=== PATIENT | male | born 1990 | race Caucasian/White ===

== ENCOUNTER 2018-12-08 14:04 | Emergency (ER) | payer SELFPAY ==
[2018-12-08 14:09] VITALS: BMI 28.3
--- NOTE | 2018-12-08 14:15 | PDOC ---
History of Present Illness - General Chief Complaint: Alcohol intoxication Stated Complaint: VOMITING Time Seen by Provider: 12/08/18 14:14 History Source: Patient (Travel Nurse #[id number]) Exam Limitations: No Limitations - History of Present Illness Initial Comments: 12/08/18 15:26 28M w/ pmh of chronic EtOH usage(12beers/d x 10ys) presenting with complaint of severe nausea and episodes of red and coffee-ground appearing emesis x 4-5 for the past two days. Cannot tolerate PO. Has had a worsened Right-sided temporal OROURKE, worsened to 5/10 severity in the last few days; present since slipping in the shower and striking his head w/o LOC 1mo prior. Also complains of all-over body warmth and perianal itching w/a intermittent bright blood in the toilet water and wiping. Last EtOH drink was ~12:00midnight, the night prior to presentation. Endorses anxiety, sensation of tingling on his head. Denies AH, VH. Has had ~6 past OSH hospital visits for EtOH-related OROURKE and numbness. Had a dark black stool 1 month prior. Lives alone in a rented room. Works 1-2x weekly. Associated Symptoms: reports: nausea/vomiting Past History - Travel Traveled outside of the country in the last 30 days: No Close contact w/someone who was outside of country & ill: No - Past Medical History Allergies/Adverse Reactions: Allergies Allergy/AdvReac Type Severity Reaction Status Date / Time No Known Allergies Allergy Verified 12/08/18 14:09 Home Medications: Ambulatory Orders NK [No Known Home Medication] 12/08/18 Anemia: No Asthma: No Cancer: No COPD: No Diabetes: No GI Disorders: Yes (Gastritis) HTN: Yes - Surgical History Abdominal Surgery: No - Family Disease History Family Disease History: CA: Mother (unspecified Ca) - Immunization History Immunization Up to Date: No - Suicide/Smoking/Psychosocial Hx Smoking Status: Yes Smoking History: Current every day smoker Years of Tobacco Use: 10 Have you smoked in the past 12 months: Yes Number of Cigarettes Smoked Daily: 5 Hx Alcohol Use: Yes Drug/Substance Use Hx: No Substance Use Type: Alcohol, Cocaine (one-time), Marijuana (occasional) Patient Lives Alone: Yes Lives with/in: lives alone Review of Systems - Review of Systems Able to Perform ROS?: Yes Is the patient limited Belarusian proficient: Yes Constitutional: Yes: Chills, Diaphoresis. No: Fever HEENTM: No: Blurred Vision, Double Vision Respiratory: Yes: Shortness of Breath. No: Cough, Wheezing Cardiac (ROS): No: Chest Pain, Palpitations, Syncope ABD/GI: Yes: Other (perianal itching x30d). No: Abdominal Distended, Constipated, Diarrhea, Tarry Stools : No: Burning, Dysuria, Urgency Musculoskeletal: No: Back Pain Integumentary: No: Pruritus, Sweating Neurological: Yes: Headache, Tingling. No: Ataxia Psychiatric: Yes: Anxiety *Physical Exam - Vital Signs Last Vital Signs Temp Pulse Resp BP Pulse Ox 98 F 91 H 18 132/89 97 12/08/18 14:06 12/08/18 14:06 12/08/18 14:06 12/08/18 14:06 12/08/18 14:06 - Physical Exam General Appearance: Yes: Mild Distress (active heaving w/o emesis during interview) HEENT: positive: Normal Voice. negative: Pale Conjunctivae, Scleral Icterus (R) , Scleral Icterus (L) Neck: negative: Tender, Trachea midline Respiratory/Chest: positive: Lungs Clear, Normal Breath Sounds, Respiratory Distress. negative: Chest Tender, Accessory Muscle Use Gastrointestinal/Abdominal: positive: Soft. negative: Tender, Protuberent, Distended, Tenderness Rectal Exam: positive: normal rectal tone, other (no external perianal masses noted. No rectal masses palpated. light brown stool on glove.). negative: hemorrhoids Extremity: negative: Delayed Capillary Refill, Calf Tenderness Integumentary: positive: Normal Color, Dry, Warm Neurologic: positive: Fully Oriented, Alert ED Treatment Course - LABORATORY CBC & Chemistry Diagram: 12/08/18 15:29 12/08/18 15:29 Medical Decision Making - Medical Decision Making 12/08/18 15:55 - CIWA ~7 - fu CBC, CMP, lipase, UA - ordered NS 1L, zofran, famotidine IV - labs reviewed - no major abnormalities - CTH reviewed - no acute changes - nausea resolved after zofran - OROURKE is improved - patient able to tolerate ice water > 4cups - patient stable for discharge *DC/Admit/Observation/Transfer Diagnosis at time of Disposition: Anal fissure Gastritis, alcoholic Qualifiers: Chronicity: chronic Gastritis bleeding: presence of bleeding unspecified Qualified Code(s): K29.20 - Alcoholic gastritis without bleeding Vomiting Qualifiers: Vomiting type: unspecified Vomiting Intractability: non-intractable Nausea presence: with nausea Qualified Code(s): R11.2 - Nausea with vomiting, unspecified Headache Qualifiers: Headache type: unspecified Headache chronicity pattern: acute headache Intractability: not intractable Qualified Code(s): R51 - Headache - Referrals Referrals: [facility] [place] [facility] [place] [Provider Group] Shahab Gallagher DO [Staff Physician] - - Patient Instructions Printed Discharge Instructions: DI for Alcohol Abuse, DI for Headache Additional Instructions: El nmero de telfono del programa de rehabilitacin de alcohol es [phone]. Yenny un seguimiento con whalen mdico de atencin primaria. Si no tiene bakari, hay abkari a continuacin. Regrese si tiene algn sntoma nuevo, que empeora o preocupa, especialmente vmitos, aumento del dolor y fiebre. The phone number for the alcohol rehab program is . Please follow up with your primary care physician. If you do not have one, there is one below. Please return if you have any new, worsening or concerning symptoms, especially vomiting, increasing pain and fever. - Post Discharge Activity
[2018-12-08] MEDS ORDERED: ONDANSETRON 4 MG/2 ML VIAL IVPUSH ONE (15:21)
[2018-12-08] MEDS ORDERED: SODIUM CHLORIDE 0.9% 500 ML INFUS.BAG IV ONE (15:21)
[2018-12-08] MEDS ORDERED: FAMOTIDINE 20 MG/50 ML IVPB 20 MG/50 ML MG IVPB ONE ×2 (15:22→15:26)
[2018-12-08] MEDS ORDERED: ONDANSETRON 4 MG/2 ML VIAL ONE (15:26)
--- NOTE | 2018-12-08 15:40 | PDOC ---
Documentation entered by Simona Valentine SCRIBE, acting as scribe for Georgie Weller MD. Georgie Weller MD: This documentation has been prepared by the Meme mcintyre Sammi, SCRIBE, under my direction and personally reviewed by me in its entirety. I confirm that the documentation accurately reflects all work, treatment, procedures, and medical decision making performed by me. Attending Attestation - Resident Resident Name: Sreekanth Serrano - HPI HPI: 12/08/18 16:08 The patient is a 28 year old male, with a significant PMH of alcohol abuse, who presents to the emergency department for evaluation of a diffuse headache since midnight last night. The patient notes he has had a headache after hitting his head about 1 month ago but has increased in severity last night. The patient states he drank about 6 beers (normally drinks ~12) and stopped due to the headache. He has not taken anything for the pain as he does not like to take medications when drinking. He also reports several episodes of black stool and yellow diarrhea. The patient also notes new onset nausea and vomiting since midnight. Allergies: NKA - Physicial Exam PE: 12/08/18 16:08 CONSTITUTIONAL: Well-appearing; well-nourished; in no apparent distress HEAD: Normocephalic; atraumatic EYES: PERRL; EOM intact ENMT: (+)dry mucous membrane. External appears normal; normal oropharynx NECK: Supple; non-tender; no cervical lymphadenopathy CARD: Normal S1, S2; no murmurs, rubs, or gallops RESP: Normal chest excursion with respiration; breath sounds clear and equal bilaterally; no wheezes, rhonchi, or rales ABD: Soft, non-distended; non-tender; no palpable organomegaly, no palpable hernias EXT: Normal ROM in all four extremities; non-tender to palpation; distal pulses intact SKIN: Warm, dry, no rash NEURO: (+)tremor. No focal neurological deficiencies. - Medical Decision Making 12/08/18 17:38 28 y/o male here in ED due to sudden onset of severe headache around midnight associated with nausea and vomitting. Pt reports a fall one airam ago with a chronoc headache since that fall yhat never went away but suddenly intensified. Pt with h/o arlene abuse normally drinks about 12 beers a night but could only drink 6 last night. Pt did not take any meds for his headache because he does not take meds when he is drinking. DD subdural bleed from bridging veins, alcohol gastritis, pancreatitis,tension headache. Pt also reports black stools today with yellow stools yesterday. Pt is clinically dehydrated Plan: cbc, cmp, lipase, ua, stool for occcult blood, ct of head, iv fluid, tylenol, reglan pepcid and reevaluate 12/08/18 18:31 Pt is feeling better , tolerating fluid, stable for dc home, pt requesting number for alcohol detox on out pt as per resident. 12/08/18 18:32 Pt guiac positive most dsecondary to rectal fissure but will refer to gi as out pt, pt with hgb of 17 in ED.
[2018-12-08 15:53] LABS: BASO % 0.8 % (0-2.0); EOS % 0.2 % (0-4.5); HEMATOCRIT 48.3 % (35.4-49); LYMPH % 30.1 % (8-40); MCH 30.9 pg (25.7-33.7); MCHC 35.1 g/dl (32.0-35.9); MEAN CELL VOLUME 88.1 fl (80-96); MEAN PLT VOLUME 10.1 fl (7.5-11.1); MONO % 5.3 % (3.8-10.2); NEUT % 63.6 % (42.8-82.8); PLATELET COUNT 232 K/MM3 (134-434); RBC 5.49 M/mm3 (4.00-5.60); RDW 12.6 % (11.9-15.9); WHITE BLOOD COUNT 6.8 K/mm3 (4.0-10.0)
[2018-12-08] MEDS ORDERED: ACETAMINOPHEN 1000 MG/100 ML VIAL (NON FORMULARY) IVPB ONE (15:56)
[2018-12-08] MEDS ORDERED: ACETAMINOPHEN INJECTION 100 ML IVPB ONE (15:58)
[2018-12-08 16:21] LABS: ALBUMIN 4.6 g/dl (3.4-5.0); BILIRUBIN,TOTAL 1.1 mg/dL (0.2-1); BLOOD UREA NITROGEN 12.8 mg/dL (7-18); CALCIUM 8.9 mg/dL (8.5-10.1); CREATININE 0.9 mg/dL (0.55-1.3); POTASSIUM 3.9 mmol/L (3.5-5.1); TOT PROT 8.6 g/dl (6.4-8.2)
[2018-12-08 16:47] LABS: PH,URINE 6.5 (5.0-8.0); URINE APPEARANCE CLEAR; URINE BILIRUBIN NEGATIVE (NEGATIVE); URINE COLOR DK YELLOW; URINE GLUCOSE (UA) NEGATIVE (NEGATIVE); URINE KETONE TRACE (NEGATIVE); URINE LEUK ESTERASE NEGATIVE (NEGATIVE); URINE NITRITE NEGATIVE (NEGATIVE); URINE PROTEIN TRACE (NEGATIVE); URINE UROBILINOGEN 0.2 mg/dL (0.2-1.0)
[2018-12-08] MEDS ORDERED: SODIUM CHLORIDE 1,000 ML IV STA (16:55)
--- NOTE | 2018-12-08 18:16 | PDOC ---
*Physical Exam - Vital Signs Last Vital Signs Temp Pulse Resp BP Pulse Ox 98 F 90 18 125/98 95 12/08/18 14:06 12/08/18 15:15 12/08/18 14:06 12/08/18 15:15 12/08/18 15:15 ED Treatment Course - LABORATORY CBC & Chemistry Diagram: 12/08/18 15:29 12/08/18 15:29 - ADDITIONAL ORDERS Additional order review: Laboratory Results 12/08/18 12/08/18 12/08/18 16:14 15:42 15:29 Sodium Potassium Chloride Carbon Dioxide Anion Gap BUN Creatinine Est GFR (CKD-EPI)AfAm Est GFR (CKD-EPI)NonAf Random Glucose Calcium Total Bilirubin AST ALT Alkaline Phosphatase Total Protein Albumin Lipase 80 Urine Color Dk yellow Urine Appearance Clear Urine pH 6.5 Ur Specific Reading 1.026 Urine Protein Trace Urine Glucose (UA) Negative Urine Ketones Trace H Urine Blood Negative Urine Nitrite Negative Urine Bilirubin Negative Urine Urobilinogen 0.2 Ur Leukocyte Esterase Negative Stool Occult Blood Positive 12/08/18 15:29 Sodium 140 Potassium 3.9 Chloride 105 Carbon Dioxide 22 Anion Gap 13 BUN 12.8 Creatinine 0.9 Est GFR (CKD-EPI)AfAm 133.30 Est GFR (CKD-EPI)NonAf 115.01 Random Glucose 126 H Calcium 8.9 Total Bilirubin 1.1 H AST 35 ALT 52 Alkaline Phosphatase 109 Total Protein 8.6 H Albumin 4.6 Lipase Urine Color Urine Appearance Urine pH Ur Specific Reading Urine Protein Urine Glucose (UA) Urine Ketones Urine Blood Urine Nitrite Urine Bilirubin Urine Urobilinogen Ur Leukocyte Esterase Stool Occult Blood 12/08/18 15:29 RBC 5.49 MCV 88.1 MCHC 35.1 RDW 12.6 MPV 10.1 Neutrophils % 63.6 Lymphocytes % 30.1 Monocytes % 5.3 Eosinophils % 0.2 Basophils % 0.8 - RADIOLOGY Radiology Studies Ordered: Category Date Time Status HEAD CT WITHOUT CONTRAST [CT] Stat CT Scan 12/08/18 16:01 Completed - Medications Given in the ED: ED Medications Discontinued Medications Generic Name Dose Route Start Last Admin Trade Name Freq PRN Reason Stop Dose Admin Acetaminophen 1,000 mg 12/08/18 15:56 12/08/18 16:03 Ofirmev Injection - IVPB 12/08/18 15:57 1,000 mg ONCE ONE Administration Famotidine/Sodium Chloride 20 mg in 50 mls @ 100 mls/hr 12/08/18 15:22 15:37 Pepcid 20 Mg Premixed Ivpb - IVPB 12/08/18 15:51 100 mls/hr ONCE ONE Administration Sodium Chloride 1,000 mls @ 1,000 mls/hr 12/08/18 16:55 12/08/18 17:14 Normal Saline - IV 12/08/18 17:54 1,000 mls/hr ASDIR STA Administration Ondansetron HCl 4 mg 12/08/18 15:21 12/08/18 15:37 Zofran Injection IVPUSH 12/08/18 15:22 4 mg ONCE ONE Administration Sodium Chloride 1,000 ml 12/08/18 15:21 12/08/18 15:37 Normal Saline - IV 12/08/18 15:22 1,000 ml ONCE ONE Administration Medical Decision Making - Medical Decision Making 12/08/18 18:09 Reassessed patient. Patient is 28M with history of etoh abuse here today with headache, vomiting, and anal pruritis. CBC shows evidence of dehydration. Given 2L IV. Tolerated 300cc of water by PO. Headache improved. Other labs normal. 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 Will discharge home. *DC/Admit/Observation/Transfer Diagnosis at time of Disposition: Gastritis, alcoholic, Vomiting, Headache, Anal fissure - Discharge Dispostion Disposition: HOME Condition at time of disposition: Good Decision to Admit order: No - Referrals Referrals: [facility] [place] [facility] [place] [Provider Group] Shahab Gallagher DO [Staff Physician] - - Patient Instructions Printed Discharge Instructions: DI for Alcohol Abuse, DI for Headache Additional Instructions: El nmero de telfono del programa de rehabilitacin de alcohol es . Yenny un seguimiento con whalen mdico de atencin primaria. Si no tiene bakari, hay bakari a continuacin. Regrese si tiene algn sntoma nuevo, que empeora o preocupa, especialmente vmitos, aumento del dolor y fiebre. The phone number for the alcohol rehab program is . Please follow up with your primary care physician. If you do not have one, there is one below. Please return if you have any new, worsening or concerning symptoms, especially vomiting, increasing pain and fever. - Post Discharge Activity
[2018-12-08 18:30] VITALS: BP 118/76; PULSE 78; TEMP 98.4
== END 2018-12-08 18:32 | disposition home or self-care (01) ==
LOC: JER 14:04
PROC: 3E0337Z Introduction of Electrolytic and Water Balance Substance into Peripheral Vein, Percutaneous Approach (ICD-10-PCS; principal; 2018-12-08)
PROC: 3E033GC Introduction of Other Therapeutic Substance into Peripheral Vein, Percutaneous Approach (ICD-10-PCS; 2018-12-08)
PROC: 3E033GC Introduction of Other Therapeutic Substance into Peripheral Vein, Percutaneous Approach (ICD-10-PCS; 2018-12-08)
PROC: 3E033NZ Introduction of Analgesics, Hypnotics, Sedatives into Peripheral Vein, Percutaneous Approach (ICD-10-PCS; 2018-12-08)
DX: K29.20 Alcoholic gastritis without bleeding (principal); R51 Headache; K60.2 Anal fissure, unspecified
CPT/HCPCS: 36415; 70450-TC; 80053; 81003; 82272; 83690; 85025; 99283-25; J0131; J7030